=== PATIENT | male | born 1980 | race Two or more races ===

== ENCOUNTER 2021-06-26 08:00 | Outpatient (CLI) | payer OTHER | END 2021-06-26 08:30 | disposition home or self-care (01) | LOC: PPH VACUNA 08:00 | DX: Z23 Encounter for immunization (principal) ==

== ENCOUNTER 2021-07-04 16:52 | Outpatient (CLI) | payer OTHER | END 2021-07-04 20:21 | disposition home or self-care (01) | LOC: LAB 16:52 | DX: Z20.828 Contact with and (suspected) exposure to other viral communicable diseases (principal) ==

== ENCOUNTER 2021-07-18 08:00 | Outpatient (CLI) | payer OTHER | END 2021-07-18 08:30 | disposition home or self-care (01) | LOC: PPH VACUNA 08:00 | PROVIDERS: ATTEND Emergency Medicine Pediatric Emergency Medicine | DX: Z23 Encounter for immunization (principal) ==